=== PATIENT | male | born 1975 | race Hispanic/Latino ===

== ENCOUNTER 2022-09-23 01:10 | Emergency (ER) | payer OTHER ==
[~2022-09-23] VITALS: Ht 167.6 cm; Wt 116.1 kg
[2022-09-23 01:32] LABS: BASOPHILS % (AUTO) 0.9 % (0.0-5.0); HEMATOCRIT 41.5 % (42-54); LYMPHOCYTES % (AUTO) 26.2 % (21.0-51.0); MEAN CORPUSCULAR HEMOGLOBIN 28.2 pg (27.0-33.0); MEAN CORPUSCULAR HGB CONC 32.8 g/dL (32.0-36.0); MEAN CORPUSCULAR VOLUME 86.1 fL (79-99); MONOCYTES % (AUTO) 8.1 % (3.0-13.0); NEUTROPHILS % (AUTO) 61.5 % (40.0-77.0); PLATELET COUNT (AUTO) 272 K/uL (130-400); RED BLOOD CELL COUNT(AUTO) 4.82 MIL/uL (4.50-6.20); RED CELL DISTRIBUTION WIDTH 12.1 % (11.0-15.5); WHITE BLOOD COUNT (AUTO) 6.9 K/uL (4.8-10.8)
[2022-09-23 01:41] LABS: CREATININE 1.1 mg/dL (0.5-1.5); POTASSIUM 4.1 mmol/L (3.5-5.1)
[2022-09-23 01:42] LABS: INR 1.12 (0.85-1.15); PROTHROMBIN TIME 12.1 SEC (9.6-11.6)
[2022-09-23 01:45] LABS: ALBUMIN 3.4 g/dL (3.5-5.0); MAGNESIUM 1.8 mg/dL (1.80-2.40); TOTAL PROTEIN, SERUM 6.4 g/dL (6.0-8.3)
[2022-09-23 01:58] LABS: B-TYPE NATRIURETIC PEPTIDE 117 pg/mL (0-100)
[2022-09-23] MEDS ORDERED: NITROGLYCERIN 50MG/D5W 250ML 1 BOT IV ONE (02:20)
[2022-09-23] MEDS ORDERED: NITROGLYCERIN 50MG/D5W 250ML 250 BOT IV SCH ×2 (02:30)
[2022-09-23 04:28] VITALS: BP 159/106
[2022-09-23] MEDS ORDERED: LISINOPRIL 40 MG TABLET PO SCH (06:00)
[2022-09-23] MEDS ORDERED: METOPROLOL TARTRATE 50 MG TAB PO ONE (06:00)
[2022-09-23] MEDS ORDERED: HYDRALAZINE 20MG/ML VIAL IV ONE (07:00)
== END 2022-09-23 07:21 ==
LOC: EDH 01:10
DX: I10 Essential (primary) hypertension (principal); R07.89 Other chest pain; E78.5 Hyperlipidemia, unspecified; I25.10 Atherosclerotic heart disease of native coronary artery without angina pectoris; Z90.49 Acquired absence of other specified parts of digestive tract; Z98.890 Other specified postprocedural states; Z95.1 Presence of aortocoronary bypass graft; Z95.5 Presence of coronary angioplasty implant and graft; Z79.899 Other long term (current) drug therapy
CPT/HCPCS: 99291; 96365; 96366; 83735; 84484 ×3; 80053; 85025; 85378; 85610; 36415; 71045; 99292; 93005; 83880 ×2; J0360; J3490